=== PATIENT | female | born 1960 | race Caucasian/White ===

== ENCOUNTER 2024-08-19 13:25 | Outpatient (CLI) | payer BC, SELFPAY ==
--- NOTE | ~2024-08-19 | CT_ITS ---
EXAMINATION: CT abdomen pelvis w con DATE: 08/19/2024 13:58 INDICATION: Pelvic mass TECHNIQUE: Computed tomography (CT) of the abdomen and pelvis was performed with 100 mL Omnipaque-350 intravenous contrast. Automated exposure control and iterative reconstruction technique were employe d. The dose-length product was 480.59 mGy-cm. COMPARISON: None FINDINGS: Minimal dependent atelectasis in both lungs. Tiny calcified left lower lobe nodule consistent with ol d granulomatous disease. Heart size is normal. Atherosclerotic coronary artery calcific location. No pericardial or pleural effusion. Liver, gallbladder, spleen, pancreas and left adrenal gland are norm al. 2.5 cm left adrenal mass, increase in size from 2 cm at the time of a CT dated 11/17/2015 at which time the mass demonstrated low attenuation diagnostic of an adenoma. Bilateral kidneys are normal. M ild diverticulosis along the descending and sigmoid colon without adjacent inflammatory stranding to suggest diverticulitis. Small bowel and appendix are normal. Tiny foci of gas within the bladder. Cor relate for recent instrumentation or Olvera catheterization. Anteverted uterus and bilateral ovaries a re unremarkable. Possible tubal ligation rings along the right parotid ligament. No tubal ligation ri ngs identified on the left broad ligament although there is a small density potentially representing a tubal ligation ring at the inferior aspect of the left paracolic gutter. There is dilation of the l eft gonadal vein and left parametrial vessels which can be seen in setting of pelvic vascular congest ion syndrome. No free intraperitoneal gas or fluid. No pathologically enlarged abdominal or pelvic ly mphadenopathy. Mild to moderate lumbar and lower thoracic spondylosis. IMPRESSION: 1. Minimal gas within the nondependent bladder. Correlate for recent instrumentation or Olvera cathete rization. No other acute intra-abdominal/pelvic process. 2. Increased prominence of the left parametrial vessels and gonadal vein which can be seen with sever e pelvic vascular congestion syndrome. 3. Mild diverticulosis. Reviewed, dictated and finalized at location A. IMPRESSION: 1. Minimal gas within the nondependent bladder. Correlate for recent instrument ation or Olvera catheterization. No other acute intra-abdominal/pelvic process. 2. Increased prominence of the left parametrial vessels and gonadal vein which can be seen with severe pelvic vascular congestion syndrome. 3. Mild diverticulosis.
--- OUTSIDE RECORDS SUMMARY | 2024-08-19 13:34 | XMS_ITS | Clinical Summary ---
Author Organization [facility] Medical Office Building B Address [address] [place] [address] Care Team Providers Care Resume Writer Name Role Phone Twyla Cheema DO Primary Care Provider Allergies No known active allergies Medications ibuprofen (ADVIL,MOTRIN) 100 mg tablet take 2 tablet by oral route every 4 - 6 hours as needed with food 0 0 03/05/2016 Active ergocalciferol (VITAMIN D) 50,000 unit capsuleIndicati ons:Vitamin D Deficiency Take 1 capsule (50,000 Units total) by mouth 2 (two) times a week 8 capsule 3 03/13/2022 Active phentermine-top iramate 7.5-46 mg capsule, ER multiphase 24 hr Take by mouth daily Active aspirin 81 mg chewable tablet Take 1 tablet (81 mg total) by mouth daily Active Active Problems Problem Noted Date Diagnosed Date Overweight with body mass in dex (BMI) of 28 to 28.9 in adult 03/16/2022 Right calf pain 03/16/2022 Assessment & Plan (03/16/2022 5:23 PM MEDICAL OPERATIONS SUPERVISOR): Rule out DVT. Will obtain stat ultrasound right lower extremity venous Doppler. Body mass index (BMI) of 33.0-33.9 in adult 11/27 Assessment & Plan (12/24/2021 7:54 AM CDT): Patient was asking about weight loss options. Interest in week OB. I discussed her pre diabetes and use of Ozempic. I talked her about diet and exercise. She is interest in weight watchers as her company pays for weight watchers. She has the mayra and tracks her points through that. Will have her follow-up in 1 month for weight check Prediabetes 10/02/2020 Assessment & Plan (03/16/2022 5:24 PM MEDICAL OPERATIONS SUPERVISOR): Doing well on Mounjero. Will increase to 5 mg daily for the next month. Follow- up 1 month for weight check Assessment & Plan (12/24/2021 8:05 AM CDT): Discussed prediabetes implication. Will try Ozempic, . Discussed starting dose and titrating dose. Discussed getting insurance approval. Discussed side effects. Will have her follow-up in 1 month for recheck The website cdc.gov (Centers for Disease Control) also has helpful information about diet/exercise..... click Health Topics, search Healthy Weight or scroll down to H and Healthy Weight and then click on Healthy Eating for a Healthy Weight . They also have information on prediabetes and prevention of type 2 diabetes. Also click Health Topics and search prediabetes Assessment & Plan (10/02/2020 7:37 AM CDT): Last hga1c was 5.7%. Will recheck with labs Hypertriglyceridemia 10/02/2020 Assessment & Plan (12/24/2021 8:08 AM CDT): Labs reviewed with patient. No medication indicated at this time. Work on diet and weight loss Assessment & Plan (10/02/2020 7:40 AM CDT): Lipid abnormalities are stable, reviewed previous lipid levels in [facility].not currently on cholesterol medication. Diet controlled. Order for lipid panel was given today to be obtained. Pt voiced understanding of lab drawn and continuation of current medication regimen. Annual physical exam 03/13/2020 Assessment & Plan (12/24/2021 8:07 AM CDT): -Recommended: Healthy diet. Avoiding junk food/fast food. -30 minutes of exercise most days of the week. Increase to 45 minutes for weight loss. Immunizations: Recommended Shingrix, Recommend covid booster as updated per CDC guidelines and influenza vaccine update this . increase physical activity, call if any problems Follow-up in 1 year. Assessment & Plan (03/13/2020 3:34 PM MEDICAL OPERATIONS SUPERVISOR): -Recommended: Healthy diet. Avoiding junk food/fast food. -30 minutes of exercise most days of the week. Increase to 45 minutes for weight loss. Immunizations: Recommended yearly influenza vaccine, discussed Shingrix vaccine lose weight, follow low fat diet, continue present plan, routine labs ordered, call if any problems Follow-up in 6 months. Internal derangement of right knee 03/08/2020 Assessment & Plan (03/13/2020 3:33 PM MEDICAL OPERATIONS SUPERVISOR): Currently being managed by Orthopedics. She has an MRI pending. Off work until at least Thursday due to current pain patient cannot walk any long distances. She is currently using ibuprofen 600-800 mg 2-3 times daily for pain. Acquired hypothyroidism 11/24/2018 Assessment & Plan (10/02/2020 7:39 AM CDT): Check TSH today. Continue current medication. Not currently on thyroid medication. Has been euthyroid Assessment & Plan (03/13/2020 3:28 PM MEDICAL OPERATIONS SUPERVISOR): Check TSH today. Continue current medication. Vitamin D deficiency 11/24/2018 Assessment & Plan (03/16/2022 5:24 PM MEDICAL OPERATIONS SUPERVISOR): Re sent vitamin-D for twice weekly Assessment & Plan (12/24/2021 8:09 AM CDT): Reviewed current vitamin-D level. Patient has difficulty remembering to take medication daily. Will resume weekly vitamin-D 36391 units. Assessment & Plan (10/02/2020 7:54 AM CDT): Will recheck vitamin-D level today Assessment & Plan (03/13/2020 3:30 PM MEDICAL OPERATIONS SUPERVISOR): Vitamin D was 15 in October. She was given vitamin D supplements at one time by her complex human resources manager, to take twice weekly, but never took them. She was post to get her vitamin-D then recheck. I told her there is no reason to recheck her vitamin-D if she did not take the supplements. I will restart her on a weekly vitamin-D supplement 73595 units weekly. We will then recheck her vitamin-D level in 12 weeks. Patient was in agreement states that a weekly supplement may be easier for her to remember to take Resolved Problems Problem Noted Date Diagnosed Date Resolved Date Class 1 obesity due to exces s calories without serious comorbidity with body mass index (BMI) of 31.0 to 31.9 in adult 11/24/2018 Assessment & Plan (10/02/2020 7:38 AM CDT): Is taking contrave from [employer]. Is having difficulty taking 2nd dose in afternoon because she forgets. BMI Follow-up includes: exercise counseling. Assessment & Plan (03/13/2020 3:29 PM MEDICAL OPERATIONS SUPERVISOR): BMI Follow-up includes: exercise counseling. Immunizations Immunization Administration Dates Next Due Influenza, Trivalent, Adjuva nted, Intramuscular 03/10/2024 Influenza, Unspecified 02/06/2023,2021(Deferred: Patient Refused),01/27/2022,12/24/2021(Deferre d: Patient Refused),06/26/2021(Deferred: Patient Refused),01/25/2021,01/26/2020, 020 Moderna SARS-CoV-2 Monovalen t Vaccination (12+ YRS) 05/22/2020,04/24/2020 Tdap 09/13/2014 Medical History Medical History Date Comments Hx Other Medical Pneumonia Osteopenia Osteopenia; Comm ents: [facility] 02/12/2016 - Vitamin D deficiency Vitamin D d eficiency; Comments: [facility] 02/12/2016 - Hyperlipidemia Hyperlipidemia; Comments: [facility] 02/12/2016 - Borderline diabetes mellitus Pre diabetes; Comments: [facility] 02/12/2016 - Family History Medical History Relation Name Comments Cancer Father Cancer, unknown ; Diabetes type II Father Diabetes me llitus type 2; Heart attack Father Myocardial infa rction; Heart disease Father Heart disease; Breast cancer Father's Sister 1 beryl Breast cancer Father's Sister 2 josh Heart disease Mother Heart disease; Colon cancer Paternal Grandfather Relation Name Status Comments Father Father's Sister 1 beryl Father's Sister 2 josh Mother Paternal Grandfather Social History Tobacco Use Types Packs/Day Years Used Date Smoking Tobacco: Former Cigarettes Q uit: 11/24/2012 Smokeless Tobacco: Never Tobacco Cessation:Counseling Given: Not Answered Alcohol Use Standard Drinks/Week Comments Yes 0 (1 standard drink = 0.6 oz pur e alcohol) Humiliation, Afraid, Rape, and Kick questionnair e Answer Date Recorded Within the last year, have y ou been afraid of your partner or ex-partner? No 05/21/2023 Within the last year, have y ou been humiliated or emotionally abused in other ways by your partner or ex-partner? No Within the last year, have y ou been kicked, hit, slapped, or otherwise physically hurt by your partner or ex-partner? No 05/21/2023 Within the last year, have y ou been raped or forced to have any kind of sexual activity by your partner or ex-partner? No 05/21/2023 AUDIT-C Answer Date Recorded Q1: How often do you have a drink containing alc ohol? Monthly or less 05/21/2023 Q2: How many drinks containi ng alcohol do you have on a typical day when you are drinking? 3 or 4 05/21/2023 Q3: How often do you have si x or more drinks on one occasion? Never 05/21/2023 PHQ-2 Answer Date Recorded PHQ-2 Total Score (If total score is 3 or more points, staff should administer the PHQ-9) 0 03/13/2022 Comments No Sex and Gender Information Value Date Recorded Sex Assigned at Not on file Legal Sex Female 11:38 AM MEDICAL OPERATIONS SUPERVISOR Gender Identity Female 03/28/2020 7:57 AM MEDICAL OPERATIONS SUPERVISOR Sexual Orientation Straight 03/28/2020 7: 57 AM MEDICAL OPERATIONS SUPERVISOR Obstetrics History Para Term AB IAB SAB Ectopic Multiple Livin g Live Births 4 4 4 2 3 Date Outcome GA Total Labor Labor/2nd/3rd Weight Sex Type Anes PTL Marguerite A1 A5 Name Clin 06/15 84 Term 3.402 kg (7 lb 8 oz) M Vaginal Local Neona munir Demis e 06/15 85 Term 3.147 kg (6 lb 15 oz) F Vaginal None Livin g Complications:None 04/14 87 Term 3.402 kg (7 lb 8 oz) F Vaginal None Complications:None 07/13 92 Term 3.345 kg (7 lb 6 oz) M Vaginal Epidur al Livin g Complications:None Last Filed Vital Signs Vital Sign Reading Time Taken Comments Blood Pressure 142/78 12/30/2023 3:34 PM CDT Pulse 89 12/30/2023 3:34 PM CDT Temperature 36.9 C (98.5 F) 12/30/2023 3:34 PM CDT Respiratory Rate 20 12/30/2023 3:34 PM CDT Oxygen Saturation 98% 12/30/2023 3:34 PM CDT Inhaled Oxygen Concentration - - Weight 90.7 kg (200 lb) 12/30/2023 3:34 PM CDT Height 167.6 cm (5' 6 ) 12/30/2023 3:34 PM CDT Body Mass Index 32.28 12/30/2023 3:34 PM CDT Plan of Treatment Health Maintenance Due Date Last Done Comments Hepatitis B Screening 1977 Pneumococcal vaccine 65+ (1 of 1 - PCV) 2009 Zoster Vaccine (1 of 2) 2009 Depression Screening 03/13/2023 03/13/2022, 01/30/2022, 12/24/2021, Additional history exists Fall Risk Assessment 03/13/2023 03/13/2022, 01/30/2022, 12/24/2021 Covid-19 Vaccine (3 - 2023-2 5 season) 2023 05/22/2020, 04/24/2020 Cervical Cancer Screening 05/21/2024 05/21/2023 Well Visit 65+ 05/21/2024 05/21/2023, 11/27, 03/13/2020 Breast Cancer Screening-Mammogram 06/04/2024 06/04/2023, 02/04/2022, 05/15/2020, Additional history exists DTaP/Tdap/Td Vaccine (2 - Td or Tdap) 09/13/2024 09/13/2014 Osteoporosis Screening-Bone Density Scan 06/04/2025 06/04/2023, 11/11/2018 Colon Cancer Screening-Colonoscopy 03/31/2026 03/31/2016 Colon Cancer Screening-CT Colonography Discontinued 03/31/2016 Colon Cancer Screening-DNA Stool Discontinued 03/31/20 16 Colon Cancer Screening-FIT Discontinued 03/31/2016 Colon Cancer Screening-Sigmoidoscopy Discontinued 03/31/2016 Hepatitis C Screening Completed 05/15/2020 Influenza Vaccine Completed 03/10/2024, , 01/27/2022, Additional history exists Procedures Procedure Name Priority Date/Time Associated Diagnosis Comments DEXA AXIAL SKELETON BONE DENSITY 1 OR MORE SITES Schedule Routine, Read Routine (OP Routine) 06/04/2023 7:37 AM MEDICAL OPERATIONS SUPERVISOR Screening for osteoporosis SCREENING MAMMOGRAM BILATERAL W TRAV Schedule Routine, Read Routine (OP Routine) 06/04/2023 7:24 AM MEDICAL OPERATIONS SUPERVISOR Screening mammogram, encounter for PAP AND HPV, REFLEX TO HPV GENOTYPES Routine 05/21/2023 11:12 AM MEDICAL OPERATIONS SUPERVISOR Well woman exam with routine gynecological exam HEPATITIS C ANTIBODY Routine 05/15/2020 3:03 PM MEDICAL OPERATIONS SUPERVISOR Annual physical exam COLONOSCOPY REPORT 03/31/2016 from Last 3 Months or Most Recently Relevant to Health Maintenance Results * Dexa Axial Skeleton Bone Density 1 Or 2 Site (06/04/2023 7:37 AM MEDICAL OPERATIONS SUPERVISOR) Anatomical Region Laterality Modality Body N/A Other 06/04/2023 4:43 PM MEDICAL OPERATIONS SUPERVISOR Narrative 06/04/2023 4:44 PM MEDICAL OPERATIONS SUPERVISOR EXAM DESCRIPTION: DEXA AXIAL SKELETON BONE DENSITY 1 OR MORE SITES REASON FOR STUDY: 63 y/o year old F with given history of: osteopenia 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 FINDINGS: AP LUMBAR SPINE L1-L4: Total BMD is 0.806 g/cm2 T-score is -2.2 LEFT HIP: Total BMD is 0.938 g/cm2 T-score is 0.0 Femoral neck BMD is 0.733 g/cm2 T-score is -1.0 FRAX: 10 year risk for a major osteoporotic fracture is 7.6 %, 10 year risk for a hip fracture is 0.5 % IMPRESSION: Low Bone Mass. REFERENCE: Bone mineral density: Normal (T-score above or = -1.0) Low bone mass (T-score between -1.0 and -2.5) replaces the previously used term osteopenia Osteoporosis (T-score = or below -2.5) Please see below follow up recommendations. Medical evaluation for secondary causes of low bone mineral density may be appropriate. FRAX is a World Health Organization validated fracture risk assessment tool that calculates a person's 10 year probability of a major osteoporosis related fracture and hip fracture. According to the National Osteoporosis Foundation guidelines, postmenopausal women and men age 50 or older with low bone mass and a 10 year probability of a major osteoporosis related fracture = or greater than 20% or a 10 year probability of a hip fracture = or greater than 3% should be considered for pharmacological treatment for the prevention of osteoporosis. For further information, including treatment recommendations, please refer to the 2019 ISCD Official Positions (http://www.iscd.org) and the NOF's Clinician's Guide to Prevention and Treatment of Osteoporosis (http://www.nof.org/professionals/clinical-guidelines) THIS IS AN ELECTRONICALLY VERIFIED FINAL REPORT 06/04/2023 4:44 PM - Electronically signed by Mauricio Mullen M.D. 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 FINDINGS: AP LUMBAR SPINE L1-L4: Total BMD is 0.806 g/cm2 T-score is -2.2 LEFT HIP: Total BMD is 0.938 g/cm2 T-score is 0.0 Femoral neck BMD is 0.733 g/cm2 T-score is -1.0 FRAX: 10 year risk for a major osteoporotic fracture is 7.6 %, 10 year risk fora hip fracture is 0.5 % IMPRESSION: Low Bone Mass. REFERENCE: Bone mineral density: Normal (T-score above or = -1.0) Low bone mass (T-score between -1.0 and -2.5) replaces thepreviously used term osteopenia Osteoporosis (T-score = or below -2.5) Please see below follow up recommendations. Medical evaluation forsecondary causes of low bone mineral density may be appropriate. FRAX is a World Health Organization validated fracture risk assessmenttool that calculates a person's 10 year probability of a major osteoporosisrelated fracture and hip fracture. According to the National OsteoporosisFoundation guidelines, postmenopausal women and men age 50 or older with low bonemass and a 10 year probability of a major osteoporosis related fracture = or greater than 20% or a 10 year probability of a hip fracture = or greaterthan 3% should be considered for pharmacological treatment for the preventionof osteoporosis. For further information, including treatment recommendations, please referto the 2019 ISCD Official Positions (http://www.iscd.org) and the NOF's Clinician's Guide to Prevention and Treatment of Osteoporosis (http://www.nof.org/professionals/clinical-guidelines) THIS IS AN ELECTRONICALLY VERIFIED FINAL REPORT 06/04/2023 4:44 PM - Electronically signed by Mauricio Mullen M.D. MF: DIAMOND Report ID: [id number] Reading Location: [place] [address] Twyla Wilson NP IM DXA PROCEDURES Final Result * Screening Mammogram Bilateral W Trav (06/04/2023 7:24 AM MEDICAL OPERATIONS SUPERVISOR) Anatomical Region Laterality Modality Breast Bilateral Mammography 06/04/2023 8:13 AM MEDICAL OPERATIONS SUPERVISOR Impressions 06/04/2023 8:13 AM MEDICAL OPERATIONS SUPERVISOR There is no mammographic evidence of malignancy. A 1 year screening mammogram is recommended. BI-RADS: 1 - Negative. The patient has been or will be contacted. The patient will be entered into a reminder system with a target due date of 1 year for her next mammogram. Electronically signed by: Cooper Will M.D. Narrative 06/04/2023 8:13 AM MEDICAL OPERATIONS SUPERVISOR EXAMINATION: SCREENING MAMMOGRAM BILATERAL W TRAV ORDERING HEALTHCARE PROVIDER: SELF SCREENING MAMMOGRAM HISTORY: Routine screening mammography. COMPARISON: 02/04/2022, 05/15/2020, 11/05/2018 TECHNIQUE: CC and MLO views of the bilateral breasts were obtained with digital technique using breast tomosynthesis with C view. Computer aided detection was utilized. FINDINGS: DENSITY: There are scattered fibroglandular elements in the bilateral breasts. BREASTS: There are no suspicious masses, suspicious calcifications, or other suspicious findings in either breast. There has been no suspicious interval change. us Self Screening Mammogram IMG MAMMO PROCEDURES Fi nal Result * Pap and HPV, reflex to HPV Genotypes (05/21/2023 11:12 AM MEDICAL OPERATIONS SUPERVISOR) Clinical indication Comment [facility] - 01 Comment:NEGATIVE FOR INTRAEP ITHELIAL LESION OR MALIGNANCY. Specimen adequacy: Comment [facility] - 01 Comment: Satisfactory for evaluation. Endocervical component may not be distinguished in cases of atrophy. Clinician provided ICD10 Comment [facility] - 01 Comment:Z01.419 Performed by Comment [facility] - 01 Comment:Travis Travis, Cyto technologist (ASCP) . . [facility] - 01 Note: Comment [facility] - 01 Comment: The Pap smear is a screening test designed to aid in the detection of premalignant and malignant conditions of the uterine cervix. It is not a diagnostic procedure and should not be used as the sole means of detecting cervical cancer. Both false-positive and false-negative reports do occur. Test methodology Comment [facility] - 01 Comment: This liquid based ThinPrep(R) pap test was screened with the use of an image guided system. HPV Aptima Negative Negative [facility] 02 Comment: This nucleic acid amplification test detects fourteen high-risk HPV types (16,18,31,33,35,39,45,51,52,56,58,59,66,68) without differentiation. HPV Genotype Reflex Comment [facility] - 01 Comment:Criteria not met, HP V Genotype not performed. Thin prep 05/21/2023 11:1 2 AM MEDICAL OPERATIONS SUPERVISOR 05/22/2023 Narrative [facility] - 05/26/2023 3:09 PM MEDICAL OPERATIONS SUPERVISOR Performed at: - [facility] [id number] Environmental Inspector: Lashay Ulrich MD, Phone: [phone] Performed at: 02 - [facility] [id number] Environmental Inspector: Lashay Ulrich MD, Phone: [phone] Specimen Comment: No. of containers..01 ThinPrep Vial Twyla Wilson NP LAB CYTOLOGY ORDERABLES Final Re sult [facility] - 01 [facility] 02 * Hepatitis C antibody (05/15/2020 3:03 PM MEDICAL OPERATIONS SUPERVISOR) Hep C Ab Nonreactive Nonreactive [facility] ([facility]) Comment: Interpretive Data Nonreactive: Antibodies to HCV not detected. Does NOT exclude the possibility of recent exposure to HCV. Equivocal: Equivocal for HCV antibodies. Supplemental molecular testing will be automatically performed to determine infection status in accordance with current CDC screening recommendations. Reactive: Positive for HCV antibodies. This may represent current or past HCV infection. Supplemental molecular testing will be automatically performed to determine current infection status in accordance with current CDC screening recommendations. Interpretive data was last revised on 2019. Testing performed by: [facility], [address] [place] [address]., [id number] Blood specimen (specimen) 05/15/2020 3:03 PM MEDICAL OPERATIONS SUPERVISOR 05/15/2020 9:17 PM MEDICAL OPERATIONS SUPERVISOR Ginger Rogers PICK PULLING MACHINE TENDER LAB MICROBIOLOGY - GENERAL OR DERABLES Final Result [facility]) 1 [facility] Department [place] [address] * COLONOSCOPY REPORT (03/31/2016) Anatomical Region Laterality Modality Other Narrative 03/31/2016 Ordered by an unspecified provider. Historical Provider GI PROCEDURE ORDERABLES F inal Result from Last 3 Months or Most Recently Relevant to Health Maintenance Insurance [facility] CHOICE [facility] HMO/PPO Address: [address] [address] [place] [address] [facility] Care Teams Resume Writer Relationship Specialty Start Date End Date Twyla Cheema DO [address] [place] [address] PCP - General Family Medicine 07/08/24
--- OUTSIDE RECORDS SUMMARY | 2024-08-19 13:34 | XMS_ITS | Clinical Summary ---
Author Organization [facility] [employer] Address [address] [place] [address] Care Team Providers Care Informatics Educator Name Role Phone Unavailable Primary Care Provider Unavailabl e Source Comments [facility] [employer],non-owned Affiliates and Associated Physician Practices is amultiple site organization consisting of ambulatory clinics and hospital sitesin [place], [place], [place] and [place]. This disclosure is being madepursuant to the Care Everywhere program and may not contain all information available regarding this patient. Last updated 18.[facility] [employer] Allergies No known active allergies Medications * Be aware that medications may not be up to date on this document. Alwaysverify current medications with the patient. Naltrexone-Bupropi on HCl (CONTRAVE PO) Active Levothyroxine Sodium (SYNTHROID PO) Active VITAMIN D, ERGOCALCIFEROL, PO A ctive MELOXICAM PO Active Active Problems No known active problems Family History Medical History Relation Name Comments Cancer - Other Father CAD (Coronary Artery Disease) Mother CABG x 4 Relation Name Status Comments Father Mother Social History Tobacco Use Types Packs/Day Years Used Date Smoking Tobacco: Former Smokeless Tobacco: Never Comments No Sex and Gender Information Value Date Recorded Sex Assigned at Not on file Legal Sex Female 8:14 AM CDT Gender Identity Not on file Sexual Orientation Not on file Last Filed Vital Signs Vital Sign Reading Time Taken Comments Blood Pressure 124/80 07/05/2020 6:45 PM FOOD SAFETY COORDINATOR Pulse 78 07/05/2020 6:45 PM FOOD SAFETY COORDINATOR Temperature 36.4 C (97.5 F) 07/05/2020 6:45 PM FOOD SAFETY COORDINATOR Respiratory Rate 18 07/05/2020 6:45 PM FOOD SAFETY COORDINATOR Oxygen Saturation 98% 07/05/2020 6:45 PM FOOD SAFETY COORDINATOR Inhaled Oxygen Concentration - - Weight 86.2 kg (190 lb) 07/05/2020 6:45 PM FOOD SAFETY COORDINATOR Height 167.6 cm (5' 6 ) 07/05/2020 6:45 PM FOOD SAFETY COORDINATOR Body Mass Index 30.67 07/05/2020 6:45 PM FOOD SAFETY COORDINATOR Plan of Treatment Health Maintenance Due Date Last Done Comments BONE DENSITY TESTING 1959 COLOGUARD (AGES 45-75) - COL ON CA SCREENING 1959 COLON MONITORING 1959 COLONOSCOPY - COLON CA SCREENING 1959 CT COLONOGRAPHY - COLON CA SCREENING 1959 Colorectal Cancer Screening 1959 FIT - COLON CA SCREENING 1959 FLEX SIG - COLON CA SCREENING 1959 LIPID TESTING 1959 HIV SCREENING 1974 HEPATITIS C SCREENING 12/29/1976 DTAP/TDAP/TD VACCINES (1 - Tdap) 1978 PNEUMOCOCCAL VACCINE 50+ (1 of 1 - PCV) 2009 ZOSTER VACCINE (1 of 2) 2009 SCREENING FOR DIABETES 10/24/2018 MAMMOGRAM 05/15/2022 05/15/2020 COVID-19 VACCINE (3 - 2023-2 5 season) 2023 05/22/2020, 04/24/2020 DEPRESSION SCREENING 04/27/2024 INFLUENZA VACCINE (Season Ended) 2024 01/26/2020 Respiratory Syncytial Virus (RSV) Vaccine Pt: or over 60 yrs (1 - 1-dose 75+ series) 2034 HEPATITIS B VACCINE Aged Out No longe r eligible based on patient's age to complete this topic HIB VACCINE Aged Out No longer eligi ble based on patient's age to complete this topic HPV VACCINE Aged Out No longer eligi ble based on patient's age to complete this topic MENINGOCOCCAL (Group B) VACCINE SHARED DECISION-MAKING Aged Out No longer eligible based on patient's age to complete this topic MENINGOCOCCAL GROUPS A/C/Y/W VACCINE Aged Out No longer eligible b ased on patient's age to complete this topic Insurance [facility]
--- OUTSIDE RECORDS SUMMARY | 2024-08-19 13:34 | XMS_ITS | Clinical Summary ---
Author Organization [facility] Care Team Providers Care Secondary History Teacher Name Role Phone Unavailable Primary Care Provider Unavailabl e Encounters Date Type Department Care Team Description 08/16/2024 Transcribe Orders [facility] Central Scheduling [address] [place] [id number] Twyla Cheema, BRENDA Pelvic mass (Primary Dx) from Last 3 Months Social History Tobacco Use Types Packs/Day Years Used Date Smoking Tobacco: Never Assessed Comments Unknown Sex and Gender Information Value Date Recorded Sex Assigned at Not on file Legal Sex Female 11:09 PM CDT Gender Identity Not on file Sexual Orientation Not on file Plan of Treatment Not on file
--- OUTSIDE RECORDS SUMMARY | 2024-08-19 13:34 | XMS_ITS | Encounter Summary ---
Author Organization [facility] Address [address] [place] [address] Care Team Providers Care Bookkeeping Clerk Name Role Phone Twyla Cheema DO Primary Care Provider [phone] Encounter Details Date Type Department Care Team (Latest Contact Info) Description 08/16/2024 Pro Player Connectt Message Enc [facility] [place] [address] [place] [address] Twyla Cheema DO [address] [place], [place] [id number] Insurance question Social History Tobacco Use Types Packs/Day Years Used Date Smoking Tobacco: Former Cigarettes 1 23 S tarted: 1976 Passive Smoke Exposure: Past Smokeless Tobacco: Never Alcohol Use Standard Drinks/Week Comments Yes 0 (1 standard drink = 0.6 oz pur e alcohol) once a month PHQ-2 Answer Date Recorded Patient Health Questionnaire-2 Score 0 08/16/2024 Comments No Sex and Gender Information Value Date Recorded Sex Assigned at Female 06/02/2024 8:25 AM BUSINESS SERVICES SPECIALIST SALES Legal Sex Female 2:00 PM CDT Gender Identity Female 06/02/2024 8:25 AM BUSINESS SERVICES SPECIALIST SALES Sexual Orientation Not on file documented as of this encounter Functional Status * Over the past 2 weeks, how often have you been bothered by any of the following problems? Question Answer Date of Assessment Author Status Little interest or pleasure in doing things Not at all 08/16/2024 10:34 AM Twyla Martines, DO Act oliva Feeling down, depressed, or hopeless Not at all 08/16/2024 10:34 AM Twyla Martines, DO Active Patient Health Questionnaire-2 Score 0 08/16/2024 10:34 AM Twyla Martines, DO Active * Question Answer Date of Assessment Author Status Trouble falling or staying asleep, or sleeping too much More than half the days 08/16/2024 10:34 AM Twyla Martines, DO Active Feeling tired or having little energy More than half the days 08/16/2024 10:34 AM Twyla Martines, DO Active Poor appetite or overeating Not at all 08/16/2024 10:34 AM Twyla Martines, DO Active Feeling bad about yourself - or that you are a failure or have let yourself or your family down Not at all 08/16/2024 10:34 AM Twyla Martines, DO Active Trouble concentrating on things, such as reading the newspaper or watching television Not at all 08/16/2024 10:34 AM Twyla Martines, DO Active Moving or speaking so slowly that other people could have noticed? Or the opposite - being so fidgety or restless that you have been moving around a lot more than usual. Not at all 08/16/2024 10:34 AM Twyla Martines, DO Active Thoughts that you would be better off or hurting yourself in some way Not at all 08/16/2024 10:34 AM Twyla Martines, DO Active Patient Health Questionnaire-9 Score 4 08/16/2024 10:34 AM Twyla Martines, DO Active * If you checked off any problems on this questionnaire so far, Question Answer Date of Assessment Author Status How difficult have these problems made it for you to do your work, take care of things at home, or get along with other people? Not difficult at all 08/16/2024 10:34 AM CDT Twyla Cheema DO Active documented as of this encounter Progress Notes * Bernie Johnson - 08/17/2024 10:48 AM CDT Update on 08/17/24: [facility] confirmed that their system has been updated to allow members to select Dr. Cheema as a PCP. They also reached out to customer service to advise them of the update. documented in this encounter Plan of Treatment Upcoming Encounters Date Type Department Care Team (Late st Contact Info) Description 08/23/2024 7:15 PM CDT Appointment [facility] [address] [place] [address] Twyla Cheema DO [address] [place] [address] 09/13/2024 1:40 PM CDT Office Visit [facility] [place] [address] [place] [address] Twyla Cheema DO [address] [place] [address] documented as of this encounter Visit Diagnoses Not on filedocumented in this encounter Additional Health Concerns Assessment Noted Time PHQ-9 Depression Total Score: 4 08/17/19 10:34 AM CDT documented as of this encounter Care Teams Bookkeeping Clerk Relationship Specialty Start Date End Date Twyla Cheema DO [address] [place] [address] PCP - General FAMILY PRACTICE 05/10/24 documented as of this encounter
--- OUTSIDE RECORDS SUMMARY | 2024-08-19 13:34 | XMS_ITS | Referral Summary ---
Author Organization [facility] Address [address] [place] [address] Care Team Providers Care Senior Media Director Name Role Phone Twyla Cheema DO Primary [...] 03/16/2022 Assessment & Plan (03/16/2022 5:23 PM FEATHER CUTTING MACHINE FEEDER): Rule out DVT. Will obtain stat ultrasound [...] 10/02/2020 Assessment & Plan (03/16/2022 5:24 PM FEATHER CUTTING MACHINE FEEDER): Doing well on Mounjero. Will increase to [...] are stable, reviewed previous lipid levels in [facility].not currently on cholesterol medication. Diet controlled. [...] year. Assessment & Plan (03/13/2020 3:34 PM FEATHER CUTTING MACHINE FEEDER): -Recommended: Healthy diet. Avoiding junk food/fast food. -30 minutes of exercise most days of the week. Increase to 45 minutes for weight loss. Immunizations: Recommended yearly influenza vaccine, discussed Shingrix vaccine lose weight, follow low fat diet, continue present plan, routine labs ordered, call if any problems Follow-up in 6 months. Internal derangement of right knee 03/08/2020 Assessment & Plan (03/13/2020 3:33 PM FEATHER CUTTING MACHINE FEEDER): Currently being managed by Orthopedics. She has [...] euthyroid Assessment & Plan (03/13/2020 3:28 PM FEATHER CUTTING MACHINE FEEDER): Check TSH today. Continue current medication. Vitamin D deficiency 11/24/2018 Assessment & Plan (03/16/2022 5:24 PM FEATHER CUTTING MACHINE FEEDER): Re sent vitamin-D for twice weekly Assessment & Plan (12/24/2021 8:09 AM CDT): Reviewed current vitamin-D level. Patient has difficulty remembering to take medication daily. Will resume weekly vitamin-D 25224 units. Assessment & Plan (10/02/2020 7:54 AM CDT): Will recheck vitamin-D level today Assessment & Plan (03/13/2020 3:30 PM FEATHER CUTTING MACHINE FEEDER): Vitamin D was 15 in October. She was given vitamin D supplements at one time by her artist representative, to take twice weekly, but never took them. She was post to get her vitamin-D then recheck. I told her there is no reason to recheck her vitamin-D if she did not take the supplements. I will restart her on a weekly vitamin-D supplement 42505 units weekly. We will then recheck her [...] 7:38 AM CDT): Is taking contrave from FIELD EDUCATION DIRECTOR. Is having difficulty taking 2nd dose in afternoon because she forgets. BMI Follow-up includes: exercise counseling. Assessment & Plan (03/13/2020 3:29 PM FEATHER CUTTING MACHINE FEEDER): BMI Follow-up includes: exercise counseling. Immunizations Immunization Administration Dates Next Due Influenza, Trivalent, Adjuva nted, Intramuscular 03/10/2024 Influenza, Unspecified 02/06/2023,2021(Deferred: Patient Refused),01/27/2022,12/24/2021(Deferre d: Patient Refused),06/26/2021(Deferred: Patient Refused),01/25/2021,01/26/2020, 020 Moderna SARS-CoV-2 Monovalen t Vaccination (12+ YRS) 05/22/2020,04/24/2020 Tdap 09/13/2014 Social History Tobacco Use Types Packs/Day Years [...] on file Legal Sex Female 11:38 AM FEATHER CUTTING MACHINE FEEDER Gender Identity Female 03/28/2020 7:57 AM FEATHER CUTTING MACHINE FEEDER Sexual Orientation Straight 03/28/2020 7: 57 AM FEATHER CUTTING MACHINE FEEDER Last Filed Vital Signs Vital Sign Reading [...] 12/30/2023 3:34 PM CDT Plan of Treatment Not on file Procedures Procedure Name Priority Date/Time Associated Diagnosis Comments DEXA AXIAL SKELETON BONE DENSITY 1 OR MORE SITES Schedule Routine, Read Routine (OP Routine) 06/04/2023 7:37 AM FEATHER CUTTING MACHINE FEEDER Screening for osteoporosis SCREENING MAMMOGRAM BILATERAL W TRAV Schedule Routine, Read Routine (OP Routine) 06/04/2023 7:24 AM FEATHER CUTTING MACHINE FEEDER Screening mammogram, encounter for PAP AND HPV, REFLEX TO HPV GENOTYPES Routine 05/21/2023 11:12 AM FEATHER CUTTING MACHINE FEEDER Well woman exam with routine gynecological exam HEPATITIS C ANTIBODY Routine 05/15/2020 3:03 PM FEATHER CUTTING MACHINE FEEDER Annual physical exam COLONOSCOPY REPORT 03/31/2016 from Last 3 Months or Most Recently Relevant to Health Maintenance Results * Dexa Axial Skeleton Bone Density 1 Or 2 Site (06/04/2023 7:37 AM FEATHER CUTTING MACHINE FEEDER) Anatomical Region Laterality Modality Body N/A Other 06/04/2023 4:43 PM FEATHER CUTTING MACHINE FEEDER Narrative 06/04/2023 4:44 PM FEATHER CUTTING MACHINE FEEDER EXAM DESCRIPTION: DEXA AXIAL SKELETON BONE DENSITY 1 OR MORE SITES REASON FOR STUDY: 63 y/o year old F with given history of: osteopenia screening postmenopausal Manager Social Services/Model: [employer] (S/N [id number]) CLINICAL INFORMATION: Current height: 66 inches Maximum [...] Mauricio Mullen M.D. MF: DIAMOND Report ID: [id number] Reading Location: [id number] Procedure Note Mauricio Mullen MD - 06/04/2023 EXAM DESCRIPTION: DEXA AXIAL SKELETON BONE DENSITY 1 OR MORE SITES REASON FOR STUDY: 63 y/o year old F with given history of: osteopenia screening postmenopausal Manager Social Services/Model: [employer] (S/N [id number]) CLINICAL INFORMATION: Current height: 66 inches Maximum [...] Mauricio Mullen M.D. MF: DIAMOND Report ID: [id number] Reading Location: [place] [address] Twyla Steve HOPE IM DXA PROCEDURES Final Result * Screening Mammogram Bilateral W Trav (06/04/2023 7:24 AM FEATHER CUTTING MACHINE FEEDER) Anatomical Region Laterality Modality Breast Bilateral Mammography 06/04/2023 8:13 AM FEATHER CUTTING MACHINE FEEDER Impressions 06/04/2023 8:13 AM FEATHER CUTTING MACHINE FEEDER There is no mammographic evidence of malignancy. A 1 year screening mammogram is recommended. BI-RADS: 1 - Negative. The patient has been or will be contacted. The patient will be entered into a reminder system with a target due date of 1 year for her next mammogram. Electronically signed by: Cooper Will M.D. Narrative 06/04/2023 8:13 AM FEATHER CUTTING MACHINE FEEDER EXAMINATION: SCREENING MAMMOGRAM BILATERAL W TRAV ORDERING [...] reflex to HPV Genotypes (05/21/2023 11:12 AM FEATHER CUTTING MACHINE FEEDER) Clinical indication Comment [facility] - 01 Comment:NEGATIVE [...] performed. Thin prep 05/21/2023 11:1 2 AM FEATHER CUTTING MACHINE FEEDER 05/22/2023 Narrative [facility] - 05/26/2023 3:09 PM FEATHER CUTTING MACHINE FEEDER Performed at: [address] [place] [address] [place] [id number] Tank Truck Driver: Lashay Ulrich MD, Phone: [phone] Performed at: 02 - [facility] [address] [place] [id number] Tank Truck Driver: Lashay Ulrich MD, Phone: [phone] Specimen Comment: No. of containers..01 ThinPrep Vial Twyla Wilson NP LAB CYTOLOGY ORDERABLES Final Re sult Performing Organization Address City/[facility]/ZIP Co de Phone Number [facility] - 01 [facility] [place] 02 * Hepatitis C antibody (05/15/2020 3:03 PM FEATHER CUTTING MACHINE FEEDER) Hep C Ab Nonreactive Nonreactive [facility] Comment: Interpretive Data Nonreactive: Antibodies to HCV [...] last revised on 2019. Testing performed by: [facility], [address] [place] [address]., [id number] Blood specimen (specimen) 05/15/2020 3:03 PM FEATHER CUTTING MACHINE FEEDER 05/15/2020 9:17 PM FEATHER CUTTING MACHINE FEEDER Ginger Rogers NP LAB MICROBIOLOGY - GENERAL OR DERABLES Final Result Performing Organization Address City/[facility]/ZIP Co de Phone Number [facility] 1 [facility] [place] [address] * COLONOSCOPY REPORT (03/31/2016) Anatomical Region Laterality Modality Other Narrative 03/31/2016 Ordered by an unspecified provider. Historical Provider GI PROCEDURE ORDERABLES F inal Result from Last 3 Months or Most Recently Relevant to Health Maintenance Insurance [facility] CHOICE [employer] [facility] HMO/PPO Address: [facility] [address] [place] [address] [facility] Care Teams Senior Media Director Relationship Specialty Start Date End Date Twyla Cheema DO [address] [place], [place] [id number] PCP - General Family Medicine 07/08/24
--- OUTSIDE RECORDS SUMMARY | 2024-08-19 13:34 | XMS_ITS | Encounter Summary ---
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 [place] [address] Phone: tel: fax: [facility] [address] [place] [address] Phone: tel: fax: Referral ID Status Reason Start Date Expiration Date Visits Re quested Visits Authorized [id number] Closed 08/18/2024 08/19/2025 1 1 * Sleep Lab (Routine) - Authorized Specialty Diagnoses / Procedures Referred By Benny greene Referred To Contact Diagnoses Nocturia Snoring Class 1 obesity without serious comorbidity with body mass index (BMI) of 30.0 to 30.9 in adult, unspecified obesity type Procedures Home Sleep Study - WatchPat ([id number]) Twyla Cheema DO 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 [place] [address] Twyla Cheema DO 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 Exam (Labs done 05/2024) Social History Tobacco Use Types Packs/Day Years Used Date Smoking Tobacco: Former Cigarettes 1 23 S tarted: 1976 Passive Smoke Exposure: Past Smokeless Tobacco: Never Tobacco Cessation:Counseling Given: No Alcohol Use Standard Drinks/Week Comments Yes 0 (1 standard drink = 0.6 oz pur e alcohol) once a month PHQ-2 Answer Date Recorded Patient Health Questionnaire-2 Score 0 08/16/2024 Comments No Sex and Gender Information Value Date Recorded Sex Assigned at Female 06/02/2024 8:25 AM CARDIAC SPECIALIST Legal Sex Female 2:00 PM CDT Gender Identity Female 06/02/2024 8:25 AM CARDIAC SPECIALIST Sexual Orientation Not on file documented as of this encounter Last Filed Vital Signs Vital Sign Reading Time Taken Comments Blood Pressure 110/68 08/16/2024 9:31 AM CDT Pulse 77 08/16/2024 9:31 AM CDT Temperature 36.5 C (97.7 F) 08/16/2024 9:31 AM CDT Respiratory Rate 16 08/16/2024 9:31 AM CDT Oxygen Saturation 98% 08/16/2024 9:31 AM CDT Inhaled Oxygen Concentration - - Weight 84.8 kg (187 lb) 08/16/2024 9:31 AM CDT Height 167.6 cm (5' 6 ) 08/16/2024 9:31 AM CDT Body Mass Index 30.18 08/16/2024 9:31 AM CDT documented in this encounter Functional Status * Over the past 2 weeks, how often have you been bothered by any of the following problems? Question Answer Date of Assessment Author Status Little interest or pleasure in doing things Not at all 08/16/2024 10:34 AM MAYDAT Twyla Cheema, DO Act oliva Feeling down, depressed, or hopeless Not at all 08/16/2024 10:34 AM MAYDAT Twyla Cheema, DO Active Patient Health Questionnaire-2 Score 0 08/16/2024 10:34 AM MAYDAT Twyla Cheema, DO Active * Question Answer Date of Assessment Author Status Trouble falling or staying asleep, or sleeping too much More than half the days 08/16/2024 10:34 AM MAYDAT Twyla Cheema, DO Active Feeling tired or having little energy More than half the days 08/16/2024 10:34 AM MAYDAT Twyla Cheema, DO Active Poor appetite or overeating Not at all 08/16/2024 10:34 AM MAYDAT Twyla Cheema, DO Active Feeling bad about yourself - [...] DO Active documented as of this encounter Patient Instructions * Patient Instructions* Twyla Cheema DO - 08/16/2024 9:20 AM CDT The National Osteoporosis Foundation recommends women over 50 should aim for 1200 mg of calcium perday which can be obtained from dietary sources such as dairy products, leafy greens, fortified foods and certain fish and supplementation can be taken if dietary intake is insufficient via calcium car bonate or calcium citrate. Vitamin D also enhances calcium absorption and recommended intake is 800 to 1000 IUs/day. I recommend you take 1000 IUs/day. Adult exercise recommendations per [place] [employer] Get at least 150 minutes per week of moderate-intensity aerobic activity or 75 minutes per week of vigorous aerobic activity, or a combination of both, preferably spread throughout the week. Add moderate- to high-intensity muscle-strengthening activity (such as resistance or weights) on atleast 2 days per week. Spend less time sitting. Even light-intensity activity can offset some of the risks of being sedentary. Gain even more benefits by being active at least 300 minutes (5 hours) per week. Increase amount and intensity gradually over time. What is intensity? Physical activity is anything that moves your body and soriano calories. This includes things like walking, climbing stairs and stretching. Aerobic (or ???cardio?? ) activity gets your heart rate up and benefits your heart by improving cardiorespiratory fitness. When done at moderate intensity, your heart will beat faster and you???ll breathe harder than normal, but you???ll still be able to talk. Think of it as a medium or moderate amount of effort. Examples of moderate-intensity aerobic activities: brisk walking (at least 2.5 miles per hour) water aerobics dancing (ballroom or social) gardening tennis (doubles) biking slower than 10 miles per hour Vigorous intensity activities will push your body a little further. They will require a higher amount of effort. You???ll probably get warm and begin to sweat. You won???t be able to talk much without getting out of breath. Examples of vigorous-intensity aerobic activities: hiking uphill or with a heavy backpack running swimming laps vigorous aerobic dancing heavy yardwork such as continuous digging or hoeing tennis (singles) cycling 10 miles per hour or faster jumping rope Knowing your target heart rate can also help you track the intensity of your activities. For maximum benefits, include both moderate- and vigorous-intensity activity in your routine along with strengthening and stretching exercises. What if I???m just starting to get active? Don???t worry if you can???t reach 150 minutes per week just yet. Everyone has to start somewhere. Even if you've been sedentary for years, today is the day you can begin to make healthy changes in your life. Set a reachable goal for today. You can work toward the recommended amount by increasing your time as you get stronger. Don't let tpl-sy-fapzylw thinking keep you from doing what you can every day. The simplest way to get moving and improve your health is to start walking. It's free, easy and canbe done just about anywhere, even in place. Any amount of movement is better than none. And you can break it up into short bouts of activity throughout the day. Taking a brisk walk for five or ten minutes a few times a day will add up. If you have a chronic condition or disability, talk with your healthcare provider about what types and amounts of physical activity are right for you before making too many changes. But don???t wait!Get started today by simply sitting less and moving more, whatever that looks like for you. The takeaway: Move more, with more intensity, and sit less. Science has linked being inactive and sitting too much with higher risk of heart disease, type 2 diabetes, colon and lung cancers, and early . It???s clear that being more active benefits everyone and helps us live longer, healthier lives. Here are some of the big wins: Lower risk of heart disease, stroke, type 2 diabetes, high blood pressure, dementia and Alzheimer???s, several types of cancer, and some complications of Better sleep, including improvements in insomnia and obstructive sleep apnea Improved cognition, including memory, attention and processing speed Less weight gain, obesity and related chronic health conditions Better bone health and balance, with less risk of injury from falls Fewer symptoms of depression and anxiety Better quality of life and sense of overall well-being Referral Information Referral Call - You will receive a call regarding this referral. Depending on the type of referral,this call may come from the [facility] Referral team at [phone] or from an [facility] hospital or an [facility] clinic. Insurance Authorization - Our referral specialists will contact your insurance company to get priorauthorization, if applicable. Working with insurance companies can be cumbersome, but we are dedicated to processing your referral timely and efficiently. Please know you have a caring and competent team working on your behalf [facility] continuum of care as quickly as possible. If you have questions or concerns regarding your referral, or have not heard anything in 5 days, please call [phone]. Thursday - Thursday, 7:30 a.m. - 5 p.m. * Attachments The following attachments cannot be sent through Care Everywhere. * High-fiber diet ([place]ankan) * Pneumococcal Conjugate (PCV) Vaccine CDC Vaccine Information Statement (VIS) ([place]an) documented in this encounter Progress Notes * Twyla Cheema DO - 08/16/2024 11:25 AM CDTAssociated Problem(s): Pelvic mass Suprapubic pelvic mass palpated on physical exam. Patient has no current symptoms of pain, changes in bowel movements, vaginal bleeding. We need to evaluate with CT abdomen pelvis with and without IVcontrast. We have faxed order over to [facility] in [place], [place] for patient to have completed. * Twyla Cheema DO - 08/16/2024 11:24 AM CDTAssociated Problem(s): Former smoker Patient does not need to participate in lung cancer screening with low-dose CT as she quit smoking many years ago and only smoked a very small amount. * Twyla Cheema DO - 08/16/2024 11:23 AM CDTAssociated Problem(s): Agatston coronary artery calcium score greater than 400 Continue daily aspirin and rosuvastatin. Counseled to not participate in vigorous physical activity until cleared by cardiology. * Twyla Cheema DO - 08/16/2024 11:23 AM CDTAssociated Problem(s): Class 1 obesity without serious comorbidity with body mass index (BMI) of 30.0 to 30.9 in adult, unspecified obesity type Continue Zepbound 15 mg twice daily. Ordering home sleep study in the setting of patient's nocturia, snoring and obesity. * Twyla Cheema DO - 08/16/2024 11:22 AM CDTAssociated Problem(s): Need for shingles vaccine Due for second dose of shingles vaccine on or after August 30, 2024 * Twyla Cheema DO - 08/16/2024 11:21 AM CDTAssociated Problem(s): Osteopenia of multiple sites She was provided calcium and vitamin D recommendations per National osteoporosis foundation. * Twyla Cheema DO - 08/16/2024 11:20 AM CDTAssociated Problem(s): Mixed hyperlipidemia Lipid panel improved incredibly after addition of statin. Continue rosuvastatin 20 mg once daily. * Twyla Cheema DO - 08/16/2024 11:19 AM CDTAssociated Problem(s): Encounter for screening mammogram for malignant neoplasm of breast Will plan to request results from mammogram * Twyla Cheema DO - 08/16/2024 10:59 AM CDTAssociated Problem(s): Nocturia Discussed with patient that this is concerning and I would like to order sleep study to evaluate for sleep breathing disorder. * Twyla Cheema DO - 08/16/2024 10:58 AM CDTAssociated Problem(s): Colon cancer screening Will attempt to request records again from Dr. Rahman regarding more recent colonoscopy. * Twyla Cheema DO - 08/16/2024 10:54 AM CDTAssociated Problem(s): Travel advice encounter Per CDC, patient will need to receive initial dose of hepatitis A vaccine as well as immune globulin at the same time. She is recommended to go to health department as we do not have immune globulin in office. * Twyla Cheema DO - 08/16/2024 10:53 AM CDTAssociated Problem(s): Need for prophylactic vaccination against Streptococcus pneumoniae (pneumococcus) She is due for Prevnar 20. She is counseled on vaccine and potential side effects of vaccine. She was given CDC VIS. * Twyla Cheema DO - 08/16/2024 10:35 AM CDTAssociated Problem(s): Depression screening Depression screening negative. Discussed with patient. She endorsed no questions. Suspect the questions that she did answer to regarding energy and sleeping are related to possible sleep breathing disorder for which we are ordering WatchPAT home sleep study. If anything changes with her mood, she is asked to return for reevaluation. * Twyla Cheema DO - 08/16/2024 9:20 AM CDTAddended by: TWYLA CHEEMA on: 08/18/2024 02:25 PM Modules accepted: Orders * Twyla Cheema DO - 08/16/2024 9:20 AM CDT SUBJECTIVE: Maegan Sheets is a 64-year-old female who presents for annual well woman exam. Care team: Upcoming cardiology appointment with 08/19/2024 LMP: Greater than 5 years ago Menstrual concerns: no-denies postmenopausal bleeding Sexually active: yes Contraception: Postmenopausal HPV vaccine status: No Cervical cancer screening: Completed today Vision Health: 1 year ago Dental Health: Upcoming appointment, goes biannually Diet: Does not follow any particular diet Exercise: No scheduled exercise regimen, would like to exercise more Problem Colon Cancer Screening 08/16/2024: Last colonoscopy on file 03/31/2016 and was requested for return in 5 years. She reports she did return in [address] Rahman and was told that she did not need to return for 10 years as no polyps were found. Encounter for Screening Mammogram for Malignant Neoplasm of Breast 08/16/2024: She reports she has upcoming mammogram scheduled at [facility] September 13, 2024 Cervical Cancer Screening Need for Prophylactic Vaccination Against Streptococcus Pneumoniae (Pneumococcus) 08/16/2024: She reports she has not previously received pneumonia vaccine. Travel Advice Encounter 08/16/2024: She reports she has upcoming cruise [place] with her grandkids in 2 weeksand is asking about hepatitis A vaccination. She reports she had measles as a kid. She reports she is received hepatitis B vaccine in the past. Nocturia 08/16/2024: She reports she gets up generally at least 2 times nightly to urinate and sometimes morefrequently. Pelvic Mass Mixed Hyperlipidemia 06/16/2024: At initial visit 06/02/2024, patient reported she has been previously prescribed atorvastatin however did not start prescription. Component Ref Range & Units 06/07/24 0801 CHOLESTEROL <200 MG/DL 211 High TRIGLYCERIDES <150 MG/DL 126 HDL >40 MG/DL 45 LDL-C <100 MG/DL 141 High VLDL CALCULATION 5 - 28 MG/DL 25 CHOL/HDL RATIO 0.0 - 4.0 4.7 High LDL/HDL 0.41 - 2.13 3.1 High NON HDL CHOLESTEROL <140 MG/DL 166 High 07/05/2024: Patient reports tolerating rosuvastatin 20 mg nightly well. She reports she has only missed 1 dose. She denies any complaints or concerns regarding medication. 08/16/2024: She reports she has been taking rosuvastatin 20 mg on a regular basis. Component Ref Range & Units 08/11/24 0821 CHOLESTEROL <200 MG/DL 92 TRIGLYCERIDES <150 MG/DL 79 HDL >40 MG/DL 42 LDL-C <100 MG/DL 34 VLDL CALCULATION 5 - 28 MG/DL 16 CHOL/HDL RATIO 0.0 - 4.0 2.2 LDL/HDL 0.41 - 2.13 0.8 NON HDL CHOLESTEROL <140 MG/DL 50 Agatston Coronary Artery Calcium Score Greater Than 400 06/16/2024: Reviewed patient's coronary artery calcium score from 03/06/2023 and Agatston score returned at 443 showing extensive plaque burden primarily in left anterior descending artery. Calcium scoring: Coronary artery score Left main (LM) 0 Left anterior descending (LAD) 347 Left circumflex (LCX) 29.3 Right Coronary Artery (RCA) 67.5 Total Agatston score 443 She reports she has occasional episodes of chest pain however they are brief. She reports she has not had one in a while. 08/16/2024: She has upcoming appointment with special class welder this Thursday. Osteopenia of Multiple Sites Initial visit 06/02/2024: Patient had DEXA scan 06/04/2023 which showed T-score -2.2 of lumbar spine and -1.0 at the left femoral neck. She had a previous DEXA scan in 2019 which also showed osteopenia. She reports she has calcium gummy vitamin supplement however does not take daily. 08/16/2024: She reports has been taking calcium supplementation and vitamin D supplementation. Class 1 Obesity Without Serious Comorbidity With Body Mass Index (Bmi) of 30.0 to 30.9 in Adult, Unspecified Obesity Type Initial visit 06/02/2024: She reports she is currently on Zepbound which she started in January 2024.She reports when she started this medication she was 2011 pounds. She reports she has worked her dose up to 15 mg weekly and just started 15 mg dose this past 2024. She denies any side effects of medication or symptoms of constipation or nausea. She reports she is previously tried Contrave medication with no significant results as well as Phentermine-Topamax with no significant weight loss results. 08/16/2024: Taking Zepbound 15 mg once weekly Depression Screening PHQ-9: 08/16/2024 10:34 AM 06/02/2024 8:38 AM PHQ2/PHQ 9 DEPRESSION SCREEN QUESTIONAIRE Little interest or pleasure in doing things Not at all Not at all Feeling down, depressed, or hopeless Not at all Not at all Patient Health Questionnaire-2 Score 0 0 Trouble falling or staying asleep, or sleeping too much Over half Feeling tired or having little energy Over half Poor appetite or overeating Not at all Feeling bad about yourself - or that you are a failure or have let yourself or your family down Notat all Trouble concentrating on things, such as reading the newspaper or watching television Not at all Moving or speaking so slowly that other people could have noticed? Or the opposite - being so fidgety or restless that you have been moving around a lot more than usual. Not at all Thoughts that you would be better off or hurting yourself in some way Not at all Patient Health Questionnaire-9 Score 4 How difficult have these problems made it for you to do your work, take care of things at home, or get along with other people? Not difficult at all Former Smoker Initial visit 06/02/2024: She reports she previously smoked 2 to 3 cigarettes a day on and off for many years. Need for Shingles Vaccine Initial visit 06/02/2024: Patient reports she does not receive shingles vaccine yet. She reports she did have chickenpox as a child. She is not averse to shingles vaccine. Current Outpatient Medications: Aspirin 81 MG Cap, Take 81 mg by mouth daily., Disp: , Rfl: rosuvastatin (CRESTOR) 20 MG tablet, Take 1 tablet (20 mg total) by mouth nightly at bedtime., Disp: 90 tablet, Rfl: 0 tirzepatide (ZEPBOUND) 15 MG/0.5ML injection, Inject 15 mg into the skin once a week. Indications: Elevation of Both Cholesterol and Triglycerides in Blood, Higher than Normal Blood Sugar not yet Considered Diabetes, Weight Loss, Disp: 2 mL, Rfl: 5 vitamin D2, ergocalciferol, (DRISDOL) 1.25 mg capsule, , Disp: , Rfl: Review of patient's allergies indicates: No Known Allergies Family History[1] Social History Socioeconomic History Marital status: Spouse name: Not on file Number of children: Not on file Years of education: Not on file Highest education level: Not on file Occupational History Not on file Tobacco Use Smoking status: Former Average packs/day: 1 pack/day for 23.0 years (23.0 ttl pk-yrs) Types: Cigarettes Start date: 1975 Passive exposure: Past Smokeless tobacco: Never Vaping Use Vaping status: Never Used Substance and Sexual Activity Alcohol use: Yes Comment: once a month Drug use: Never Sexual activity: Not Currently Other Topics Concern Not on file Social History Narrative Not on file Social Drivers of Health Financial Resource Strain: Not on file Food Insecurity: Not on file Transportation Needs: Not on file Physical Activity: Not on file Stress: Not on file Social Connections: Not on file Intimate Partner Violence: Not At Risk (05/21/2023) Received from [facility] Humiliation, Afraid, Rape, and Kick questionnaire Fear of Current or Ex-Partner: No Emotionally Abused: No Physically Abused: No Sexually Abused: No Housing Stability: Not on file ROS: Review of Systems Constitutional: Negative. HENT: Negative. Eyes: Negative. Respiratory: Negative. Cardiovascular: Negative. Gastrointestinal: Negative. Genitourinary: Negative. Musculoskeletal: Negative. Skin: Negative. Psychiatric/Behavioral: Negative. OBJECTIVE: Filed Vitals: 08/16/24 0931 BP: 110/68 Pulse: 77 Resp: 16 Temp: 97.7 ??F (36.5 ??C) TempSrc: Temporal SpO2: 98% Weight: 84.8 kg (187 lb) Height: 1.676 m (5' 6 ) Physical Exam Vitals reviewed. Exam conducted with a java web architect present (MA: Kathy Hernandez). Constitutional: General: She is not in acute distress. Appearance: Normal appearance. She is normal weight. HENT: Head: Normocephalic and atraumatic. Eyes: Extraocular Movements: Extraocular movements intact. Conjunctiva/sclera: Conjunctivae normal. Cardiovascular: Rate and Rhythm: Normal rate and regular rhythm. Heart sounds: Normal heart sounds. Pulmonary: Effort: Pulmonary effort is normal. No respiratory distress. Breath sounds: Normal breath sounds. Chest: Chest wall: No mass, lacerations, deformity, swelling, tenderness or crepitus. Breasts: Abilio Score is 5. Breasts are symmetrical. Right: Normal. Left: Normal. Abdominal: General: There is no distension. Palpations: Abdomen is soft. There is mass. Tenderness: There is no abdominal tenderness. There is no guarding. Comments: Approximately 4 cm in width suprapubic hard, abdominal mass. No tenderness to palpation. Genitourinary: General: Normal vulva. Exam position: Lithotomy position. Pubic Area: No rash. Abilio stage (genital): 5. Labia: Right: No rash, tenderness, lesion or injury. Left: No rash, tenderness, lesion or injury. Urethra: No urethral swelling or urethral lesion. Vagina: Normal. Cervix: Lesion present. No discharge, friability, erythema or cervical bleeding. Adnexa: Right adnexa normal and left adnexa normal. Comments: Flat, approximately 1 cm lesion on cervix approximately 11:00. No viability of cervix appreciated. Lymphadenopathy: Upper Body: Right upper body: No axillary or pectoral adenopathy. Left upper body: No axillary or pectoral adenopathy. Skin: General: Skin is warm and dry. Neurological: General: No focal deficit present. Mental Status: She is alert. Gait: Gait normal. Psychiatric: Mood and Affect: Mood normal. Behavior: Behavior normal. Thought Content: Thought content normal. Laboratory Only on 08/11/2024 Component Date Value Ref Range Status CHOLESTEROL 08/11/2024 92 <200 MG/DL Final TRIGLYCERIDES 08/11/2024 79 <150 MG/DL Final HDL 08/11/2024 42 >40 MG/DL Final LDL-C 08/11/2024 34 <100 MG/DL Final VLDL CALCULATION 08/11/2024 16 5 - 28 MG/DL Final CHOL/HDL RATIO 08/11/2024 2.2 0.0 - 4.0 Final LDL/HDL 08/11/2024 0.8 0.41 - 2.13 Final NON HDL CHOLESTEROL 08/11/2024 50 <140 MG/DL Final ] ASSESSMENT AND PLAN Maegan Sheets is a 64-year-old female Health Care Maintenance: Prevention: - Cervical cancer screening completed today - STD screening declined/not indicated - Family planning: Postmenopausal - Colon cancer screening will obtain record - Diabetes screening completed 06/16/2024 with A1c 5.4% - Lipid panel screening completed 06/07/2024. The ASCVD Risk score (Kina LY, et al., 2019) failed to calculate for the following reasons: The valid total cholesterol range is 130 to 320 mg/dL - Discussed diet changes and exercise - Discussed nutrition, physical activity, healthy weight, injury prevention, avoidance of tobacco, alcohol and drugs, dental health, immunizations, screenings - Breast cancer screening: Scheduled September 13, 2024 at [facility] - Immunizations: Tdap due 09/13/2024, Prevnar 20 DUE, Shingrix second dose due 08/30/2024, and Flu recommend to receive influenza vaccine December or January 2025 - Depression screening: neg - Lung cancer screening declined/not indicated - DEXA: Provided calcium and vitamin D recommendations. Last DEXA 06/04/2023 - Tobacco use In remission greater than 20 years - HCPOA discussed. Code status FULL Depression screening Depression screening negative. Discussed with patient. She endorsed no questions. Suspect the questions that she did answer to regarding energy and sleeping are related to possible sleep breathing disorder for which we are ordering [facility] home sleep study. If anything changes with her mood, she is asked to return for reevaluation. Need for prophylactic vaccination against Streptococcus pneumoniae (pneumococcus) She is due for Prevnar 20. She is counseled on vaccine and potential side effects of vaccine. She was given CDC VIS. Travel advice encounter Per [facility], patient will need to receive initial dose of hepatitis A vaccine as well as immune globulin at the same time. She is recommended to go to health department as we do not have immune globulin in office. Colon cancer screening Will attempt to request records again from Dr. Rahman regarding more recent colonoscopy. Nocturia Discussed with patient that this is concerning and I would like to order sleep study to evaluate for sleep breathing disorder. Encounter for screening mammogram for malignant neoplasm of breast Will plan to request results from mammogram Mixed hyperlipidemia Lipid panel improved incredibly after addition of statin. Continue rosuvastatin 20 mg once daily. Osteopenia of multiple sites She was provided calcium and vitamin D recommendations per National osteoporosis foundation. Need for shingles vaccine Due for second dose of shingles vaccine on or after August 30, 2024 Class 1 obesity without serious comorbidity with body mass index (BMI) of 30.0 to 30.9 in adult, unspecified obesity type Continue Zepbound 15 mg twice daily. Ordering home sleep study in the setting of patient's nocturia, snoring and obesity. 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 Counseled to not participate in vigorous physical activity until cleared by cardiology. Former smoker Patient does not need to participate in lung cancer screening with low-dose CT as she quit smoking many years ago and only smoked a very small amount. Pelvic mass Suprapubic pelvic mass palpated on physical exam. Patient has no current symptoms of pain, changes in bowel movements, vaginal bleeding. We need to evaluate with CT abdomen pelvis with and without IVcontrast. We have faxed order over to [facility] in [place], [place] for patient to have completed. Lab: None Specified Return in about 4 weeks (around 09/13/2024) for Follow-up sleep study, second dose shingles, CT abdomen and pelvis. TWYLA CHEEMA, DO Family Practice [1] Family History Problem Relation Name Age of Onset Hypertension Mother Karime Stroke Mother Karime Heart Disease Mother Karime Thyroid Disease Mother Karime Hypertension Father Daniele Heart Disease Father Daniele Diabetes Father Daniele Throat cancer Father Daniele pharyngeal Cancer Father Daniele No Known Problems Sister No Known Problems Sister No Known Problems Sister Diabetes Brother No Known Problems Daughter No Known Problems Daughter Other (diaphragmatic hernia) Son Other (Concussion) Son Stroke Maternal Grandmother Colon Cancer Paternal Grandfather documented in this encounter Plan of Treatment Upcoming Encounters Date Type Department Care Team (Late st Contact Info) Description 08/23/2024 7:15 PM CDT Appointment [facility] Sleep Lab [address] [place] [address] Twyla Cheema, DO [address] [place] [address] 09/13/2024 1:40 PM CDT Office Visit [facility] [place] [address] [place] [address] Twyla Cheema, DO [address] [place] [address] Pending Results Name Type Priority Associated Diagnoses Date /Time Cytopath Cerv/Vag Thin Layer Pathology and Cytology Routine Cervical cancer screening 08/16/2024 11:12 AM CDT Scheduled Orders Name Type Priority Associated Diagnoses Orde r Schedule Cytopath Cerv/Vag Thin Layer Pathology and Cytology Routine Cervical cancer screening Expected: 08/16/2024, Expires: 08/15/2025 Home Sleep Study - [facility] ([id number]) [facility] Routine Nocturia Snoring Class 1 obesity without serious comorbidity with body mass index (BMI) of 30.0 to 30.9 in adult, unspecified obesity type Expected: 08/23/2024 (Approximate), Expires: 08/16/2025 BRIEF EMOTIONAL/BEHAVIORAL ASSESSMENT Procedures Routine Depression screening Ordered: 08/16/2024 CT ABD+PEL WWO CON CT STAT Pelvic mass Expected: 08/18/2024, Expires: 08/18/2025 documented as of this encounter Visit Diagnoses Diagnosis Pelvic mass- Primary Abdominal or pelvic swelling, mass or lump, unspecified site Nocturia Snoring Other dyspnea and respiratory abnormality Agatston coronary artery calcium score greater than 400 Nonspecific (abnormal) findings on radiological and other examination of other intrathoracic organs Osteopenia of multiple sites Mixed hyperlipidemia Postmenopausal Asymptomatic postmenopausal status (age-related) (natural) Class 1 obesity without serious comorbidity with body mass index (BMI) of 30.0 to 30.9 in adult, unspecified obesity type Encounter for well woman exam with routine gynecological exam Cervical cancer screening Screening for malignant neoplasm of the cervix Colon cancer screening Special screening for malignant neoplasms, colon Encounter for screening mammogram for malignant neoplasm of breast Other screening mammogram Depression screening Screening for depression Need for prophylactic vaccination against Streptococcus pneumoniae (pneumococcus) Need for prophylactic vaccination against streptococcus pneumoniae (pneumococcus) Travel advice encounter Need for shingles vaccine Need for prophylactic vaccination and inoculation against other viral diseases Former smoker Personal history of tobacco use, presenting hazards to health Wears prescription eyeglasses documented in this encounter Additional Health Concerns Assessment Noted Time PHQ-9 Depression Total Score: 4 08/17/19 25 10:34 AM CDT documented as of this encounter Care Teams Millinery Blocker Relationship Specialty Start Date End Date Twyla Cheema DO [address] [place] [address] PCP - General FAMILY PRACTICE 05/10/24 documented as of this encounter
--- OUTSIDE RECORDS SUMMARY | 2024-08-19 13:34 | XMS_ITS | Clinical Summary ---
Author Organization [facility] Address [address] [place] [address] Care Team Providers Care Revenue Cycle Consultant Name Role Phone Twyla Cheema DO Primary Care Provider [phone] Allergies No known active allergies Medications Aspirin 81 MG Cap Take 81 mg by mouth daily. 05/16/19 24 Active vitamin D2, ergocalciferol, (DRISDOL) 1.25 mg capsule Active tirzepatide (ZEPBOUND) 15 MG/0.5ML injectionIndicatio ns:Mixed Dyslipidemia,Predi abetes,Weight Loss Inject 15 mg into the skin once a week. Indications: Elevation of Both Cholesterol and Triglycerides in Blood, Higher than Normal Blood Sugar not yet Considered Diabetes, Weight Loss 2 mL 5 07/06/19 25 025 Active rosuvastatin (CRESTOR) 20 MG tabletIndications: Mixed hyperlipidemia Take 1 tablet (20 mg total) by mouth nightly at bedtime. 90 tablet 07/06/19 25 025 Active Active Problems Problem Noted Date Diagnosed Date Colon cancer screening 08/16/2024 Overview (08/16/2024): 08/16/2024: Last colonoscopy on file 03/31/2016 and was requested for return in 5 years. She reports she did return in [address] Rahman and was told that she did not need to return for 10 years as no polyps were found. Assessment & Plan (08/16/2024 10:58 AM CDT): Will attempt to request records again from Dr. Rahman regarding more recent colonoscopy. Encounter for screening mamm ogram for malignant neoplasm of breast 08/16/2024 Overview (08/16/2024): 08/16/2024: She reports she has upcoming mammogram scheduled at [facility] September 13, 2024 Assessment & Plan (08/16/2024 11:19 AM CDT): Will plan to request results from mammogram Cervical cancer screening 08/16/2024 Need for prophylactic vaccin ation against Streptococcus pneumoniae (pneumococcus) 08/16/2024 Overview (08/16/2024): 08/16/2024: She reports she has not previously received pneumonia vaccine. Assessment & Plan (08/16/2024 10:53 AM CDT): She is due for Prevnar 20. She is counseled on vaccine and potential side effects of vaccine. She was given CDC VIS. Travel advice encounter 08/16/2024 Overview (08/16/2024): 08/16/2024: She reports she has upcoming cruise to [facility] and [place] with her grandkids in 2 weeks and is asking about hepatitis A vaccination. She reports she had measles as a kid. She reports she is received hepatitis B vaccine in the past. Assessment & Plan (08/16/2024 10:55 AM CDT): Per CDC, patient will need to receive initial dose of hepatitis A vaccine as well as immune globulin at the same time. She is recommended to go to health department as we do not have immune globulin in office. Nocturia 08/16/2024 Overview (08/16/2024): 08/16/2024: She reports she gets up generally at least 2 times nightly to urinate and sometimes more frequently. Assessment & Plan (08/16/2024 10:59 AM CDT): Discussed with patient that this is concerning and I would like to order sleep study to evaluate for sleep breathing disorder. Pelvic mass 08/16/2024 Assessment & Plan (08/16/2024 11:25 AM CDT): Suprapubic pelvic mass palpated on physical exam. Patient has no current symptoms of pain, changes in bowel movements, vaginal bleeding. We need to evaluate with CT abdomen pelvis with and without IV contrast. We have faxed order over to [facility] in [place], [place] for patient to have completed. Wears prescription eyeglasses 08/16/2024 Overview (08/16/2024): 08/16/2024: She reports she last had annual eye exam last year. Mixed hyperlipidemia 06/16/2024 Overview (08/16/2024): 06/16/2024: At initial visit 06/02/2024, patient reported [...] 0.8 NON HDL CHOLESTEROL <140 MG/DL 50 Assessment & Plan (08/16/2024 11:20 AM CDT): Lipid panel improved incredibly after addition of statin. Continue rosuvastatin 20 mg once daily. Assessment & Plan (07/05/2024 9:28 AM CDT): Will plan to repeat fasting lipid panel in approximately 2 weeks. Continue rosuvastatin 20 mg nightly at this time. Assessment & Plan (06/16/2024 1:28 PM FUEL CELL REPAIRER): Reviewed outside documentation of coronary artery calcium score and score was over 400 showing extensive plaque burden. Recommend patient start statin as cholesterol panel is elevated and the CT coronary artery calcium score is high. The 10-year ASCVD risk score (Kina LY, et al., 2019) is: 6.5% Values used to calculate the score: Age: 64 years Sex: Female Is Non- : No Diabetic: No Tobacco smoker: No Systolic Blood Pressure: 131 mmHg Is BP treated: No HDL Cholesterol: 45 MG/DL Total Cholesterol: 211 MG/DL Discussed with patient that her ASCVD risk score does not necessarily necessitate starting cholesterol-lowering medication however in the setting of her high cholesterol and coronary artery calcium score, I would recommend starting her on moderate to high intensity statin. We agreed to start with rosuvastatin 20 mg daily at nighttime. Patient counseled on potential side effects and instructed to notify the office if she experiences any significant side effects. She is counseled on dietary interventions that can help decrease cholesterol such as increasing intake of dietary fiber through legumes or whole grains among others. Decreased glomerular filtration rate (GFR) 06/16 Overview (06/16/2024): 06/16/2024: From [facility] 06/07/2024 GFR ESTIMATE >90 ML/MIN/1.73 M2 73 Assessment & Plan (06/16/2024 1:33 PM FUEL CELL REPAIRER): Discussed with patient her decreased GFR. This appears decrease even further from last labs I have on file from 12/10/2021. Discussed with patient that we can repeat in 3 months to see if GFR changes. Patient does not have underlying overt diabetes or hypertension. If GFR continues to remain at a similar number, we could consider starting low-dose SAEED/ARB for renal protection. Agatston coronary artery calcium score greater t stevens 400 06/16/2024 Overview (08/16/2024): 06/16/2024: Reviewed patient's coronary artery calcium score [...] while. 08/16/2024: She has upcoming appointment with assistant professor of dietetics this Thursday. Assessment & Plan (08/16/2024 11:23 AM CDT): Continue daily aspirin and rosuvastatin. Counseled to not participate in vigorous physical activity until cleared by cardiology. Assessment & Plan (06/16/2024 1:36 PM FUEL CELL REPAIRER): The results of this were discussed with patient and we agreed upon cardiology referral as she may need stress testing in the setting of the score and her mixed hyperlipidemia. Referral placed for cardiology. Patient requesting female provider so referral has been placed for Dr. Rogel. Patient instructed to continue taking baby aspirin 81 mg daily. Osteopenia of multiple sites 06/02/2024 Overview (08/16/2024): Initial visit 06/02/2024: Patient had DEXA scan 06/04/2023 which showed T-score -2.2 of lumbar spine and -1.0 at the left femoral neck. She had a previous DEXA scan in 2019 which also showed osteopenia. She reports she has calcium gummy vitamin supplement however does not take daily. 08/16/2024: She reports has been taking calcium supplementation and vitamin D supplementation. Assessment & Plan (08/16/2024 11:21 AM CDT): She was provided calcium and vitamin D recommendations per National osteoporosis foundation. Assessment & Plan (06/16/2024 1:29 PM FUEL CELL REPAIRER): The National Osteoporosis Foundation recommends women over 50 should aim for 1200 mg of calcium per day which can be obtained from dietary sources such as dairy products, leafy greens, fortified foods and certain fish and supplementation can be taken if dietary intake is insufficient via calcium carbonate or calcium citrate. Vitamin D also enhances calcium absorption and recommended intake is 800 to 1000 IUs/day. I recommend you take 1000 IUs/day. Assessment & Plan (06/02/2024 9:57 AM FUEL CELL REPAIRER): She is provided calcium and vitamin D recommendations per National osteoporosis foundation. Also counseled on importance of resistance training in relation to bone health. Class 1 obesity without seri ous comorbidity with body mass index (BMI) of 30.0 to 30.9 in adult, unspecified obesity type 06/02/2024 Overview (08/16/2024): Initial visit 06/02/2024: She reports she is currently on Zepbound which she started in January 2024. She reports when she started this medication she [...] 08/16/2024: Taking Zepbound 15 mg once weekly Assessment & Plan (08/16/2024 11:23 AM CDT): Continue Zepbound 15 mg twice daily. Ordering home sleep study in the setting of patient's nocturia, snoring and obesity. Assessment & Plan (07/05/2024 9:27 AM CDT): Patient's weight is fairly stable from last visit. Continue Zepbound 15 mg once weekly. Refill placed to pharmacy. Assessment & Plan (06/02/2024 10:00 AM FUEL CELL REPAIRER): Labs are ordered at this time. Patient counseled that long-term sequelae of these GLP-1 medications are undetermined at this time however patient is counseled to participate in weight resistance training in affect to help promote and maintain bone health. Depression screening 06/02/2024 Overview (08/16/2024): PHQ-9: 08/16/2024 10:34 AM 06/02/2024 8:38 AM [...] or your family down Not at all Trouble concentrating on things, such as [...] with other people? Not difficult at all Assessment & Plan (08/16/2024 10:35 AM CDT): Depression screening negative. Discussed with patient. She endorsed no questions. Suspect the questions that she did answer to regarding energy and sleeping are related to possible sleep breathing disorder for which we are ordering [employer] home sleep study. If anything changes with her mood, she is asked to return for reevaluation. Assessment & Plan (06/02/2024 10:03 AM FUEL CELL REPAIRER): Depression screening negative. This was discussed with patient and she endorsed no questions. Chronic sinusitis, unspecified location 06/02/19 25 Overview (06/02/2024): Initial visit 06/02/2024: She is requesting referral to ENT. She reports she has difficulty breathing at nighttime when she lays down and uses generic Ryan- Synephrine nasal spray nightly once. She reports she has had sinus issues for a long period of time. Assessment & Plan (06/02/2024 10:02 AM FUEL CELL REPAIRER): Counseled patient to discontinue Ryan-Synephrine nasal spray as she likely has rebound congestion from chronically using this type of nasal spray. She is counseled that she can use nasal saline as a mild decongestion and sbdl-del-tuogeip Flonase/fluticasone 1 spray in each nostril daily steroid nasal spray to help decrease inflammation and promote nasal breathing at nighttime. If does not improve, we can refer to ENT. Patient is agreeable to plan. Former smoker 06/02/2024 Overview (06/02/2024): Initial visit 06/02/2024: She reports she previously smoked 2 to 3 cigarettes a day on and off for many years. Assessment & Plan (08/16/2024 11:24 AM CDT): Patient does not need to participate in lung cancer screening with low-dose CT as she quit smoking many years ago and only smoked a very small amount. Assessment & Plan (06/02/2024 10:00 AM FUEL CELL REPAIRER): Based on patient's description of smoking history, I do not think she is a candidate for lung cancer screening with low-dose CT. This was communicated to patient. Postmenopausal 06/02/2024 Overview (06/02/2024): Initial visit 06/02/2024: She reports she went through menopause around age 49. Need for shingles vaccine 06/02/2024 Overview (07/05/2024): Initial visit 06/02/2024: Patient reports she does not receive shingles vaccine yet. She reports she did have chickenpox as a child. She is not averse to shingles vaccine. Assessment & Plan (08/16/2024 11:22 AM CDT): Due for second dose of shingles vaccine on or after August 30, 2024 Assessment & Plan (07/05/2024 9:27 AM CDT): Plan to give first dose of shingles vaccine today in office. Patient provided CDC VIS. She is counseled on potential side effects. Assessment & Plan (06/02/2024 10:10 AM FUEL CELL REPAIRER): She is counseled regarding shingles vaccine and recommendation for 2 doses and recommendation prior to age 70. Prediabetes 10/02/2020 Overview (06/16/2024): 06/02/2024: Initial visit 06/02/2024: She reports she has never been diagnosed with overt diabetes. She reports she has previously been prescribed metformin however did not start. She reports she checks her fasting blood glucose weekly on Sundays and it ranges typically from 99-116. She is currently on Zepbound 15 mg weekly and denies side effects. 06/16/2024: She continues to remain on Zepbound 15 mg weekly and denies side effects. She is requesting refill. Fasting blood glucose returned at 102 on CMP 06/07/2024. Assessment & Plan (06/16/2024 1:31 PM FUEL CELL REPAIRER): In office hemoglobin A1c returned at 5.4%. Will continue Zepbound if covered and dietary and lifestyle recommendations still stand. Assessment & Plan (06/02/2024 9:56 AM FUEL CELL REPAIRER): Hemoglobin A1c and fasting blood glucose ordered. Vitamin D deficiency 11/24/2018 Overview (06/16/2024): Initial visit 06/02/2024: She reports she has been low on vitamin D in the past and was supplementing for a while but ran out. She reports last time she had her labs checked was around a year ago. 06/16/2024: Component Ref Range & Units 06/07/24 0801 VITAMIN D 25 HYDROXY TOTAL S/P/B 30 - 100 NG/ML 15.8 Low Assessment & Plan (06/16/2024 1:31 PM FUEL CELL REPAIRER): Discussed with patient at length that we could do high-dose vitamin D supplementation once weekly or we can even do vitamin D3 5000 to 10,000 IU daily with food or discontinue with recommendations per National osteoporosis foundation and patient take 1000 IU daily with calcium. Discussed with patient that I recommend she at least take vitamin D3 1000 IU daily with food. Assessment & Plan (06/02/2024 9:55 AM FUEL CELL REPAIRER): Vitamin D levels ordered Resolved Problems Problem Noted Date Diagnosed Date Resolved Date Encounter for screening for cardiovascular disorders 03/11/2023 06/02/2024 Internal derangement of right knee 03/08/2020 06/02/2024 Acquired hypothyroidism 11/24/201809/2024 Encounters Date Type Department Care Team Description 08/16/2024 10:46 AM CDT - 08/16/2024 11:59 PM CDT Hospital Encounter [facility] [address] [facility] [place] [place] [address] Twyla Cheema, DO Discharge Disposition: Home or Self Care (Routine Discharge) 08/16/2024 9:20 AM CDT [facility] [place] [address] [place] [address] Twyla Cheema, Inspector Bullet Slugs Exam (Labs done 05/2024) 08/16/2024 MyChart Message [facility] [place] [address] [place] [address] Twyla Cheema, DO Insurance question 08/16/2024 Travel 08/11/2024 8:20 AM CDT Laboratory Only [facility] [place] [address] [place] [address] Twyla Cheema, 08/11/2024 Results Follow-Up [place] [address] [facility] [address] [place] [address] Twyla Cheema, DO LIPID PANEL 08/11/2024 Travel 07/07/2024 Telephone [place] [address] [facility] [address] [place] [address] Twyla Cheema, DO Record Request 07/05/2024 8:20 AM CDT Office Visit [place] [address] [place] [address] Twyla Cheema, DO Hyperlipidemia 07/05/2024 Travel 06/16/2024 10:40 AM FUEL CELL REPAIRER Office Visit [place] [address] [facility] [address] [place] [address] Twyla Cheema, DO Follow Up (Labs done /In chart A1c not done /) 06/16/2024 Travel 06/13/2024 Telephone [place] [address] [facility] [address] [place] [address] Twyla Cheema, DO Record Request 06/07/2024 Travel 06/02/2024 8:00 AM FUEL CELL REPAIRER Office Visit [place] [address] [facility] [address] [place] [address] Twyla Cheema, DO New Patient (Pt states she wants labs. Pt states she wants to see ENT for sinus issues. ); Establish Care 06/02/2024 Travel from Last 3 Months Immunizations Immunization Administration Dates Next Due FLUAD (IIV, Trivalent, 0.5 M L Pre-filled Syringe) 03/10/2024 Influenza (Generic) 02/06/2023, 2,01/25/2021,2019 Pneumococcal (Prevnar 20) 08/16/2024 Shingrix 07/05/2024 Tdap (Generic) 09/13/2014 Family History Medical History Relation Comments Diabetes Brother 2 No Known Problems Daughter 1 No Known Problems Daughter 2 Cancer Father Diabetes Father Heart Disease Father Hypertension Father Throat cancer Father pharyngeal Stroke Maternal Grandmother Heart Disease Mother Hypertension Mother Stroke Mother Thyroid Disease Mother Colon Cancer Paternal Grandfather No Known Problems Sister 1 No Known Problems Sister 2 No Known Problems Sister 3 diaphragmatic hernia Son 1 Concussion Son 2 Relation Status Comments Brother 1 Alive Brother 2 Alive Daughter 1 Alive Daughter 2 Alive Father Maternal Grandfather Maternal Grandmother Mother Alive Paternal Grandfather Paternal Grandmother Sister 1 Alive Sister 2 Alive Sister 3 Alive Son 1 Son 2 Alive Social History Tobacco Use Types Packs/Day Years Used Date Smoking Tobacco: Former Cigarettes 1 23 S tarted: 1975 Passive Smoke Exposure: Past Smokeless Tobacco: Never Tobacco Cessation:Counseling Given: No Alcohol Use Standard Drinks/Week Comments Yes 0 (1 standard drink = 0.6 oz pur e alcohol) once a month PHQ-2 Answer Date Recorded Patient Health Questionnaire-2 Score 0 08/16/2024 Comments No Sex and Gender Information Value Date Recorded Sex Assigned at Female 06/02/2024 8:25 AM FUEL CELL REPAIRER Legal Sex Female 2:00 PM CDT Gender Identity Female 06/02/2024 8:25 AM FUEL CELL REPAIRER Sexual Orientation Not on file Last Filed [...] Mass Index 30.18 08/16/2024 9:31 AM CDT Plan of Treatment Upcoming Encounters Date Type Department Care Team (Late st Contact Info) Description 08/23/2024 7:15 PM CDT Appointment [facility] [address] [place] [address] Twyla Cheema, DO [address] [place] [address] 09/13/2024 1:40 PM CDT Office Visit [facility] [place] [address] [place] [address] Twyla Cheema M, DO [address] [place] [address] Health Maintenance Due Date Last Done Comments Colorectal Cancer Screening Colonoscopy (10 Years) 03/31/2021 03/31/2016 Mammogram Screening 06/04/2024 06/04/2023, 02/04/2022, 05/15/2020, Additional history exists Zoster Vaccines (2 of 2) 08/30/2024 07/05/2024 DTaP, Tdap and Td Vaccines (2 - Td or Tdap) 09/13/2024 09/13/2014 Lung Cancer Screening 06/02/2025 Postpo twila from 2009 (Patient Refused) Dexa Scan (General) 06/04/2025 06/04/2023, 06/04/2023, 11/11/2018 COVID-19 Vaccine (3 - 2023- season) 2025 05/22/2020, 04/24/2020 Postponed from 12/27/2023 (Patient Refused) RSV Immunization or 60+ Years (1 - 1-dose 75+ series) 2034 Hepatitis C Addressed 05/15/2020 (Prev iously completed) Overridden with the intention of not completing the topic PHQ-2 (Physician Homer) Completed 08/16/2024 Pneumococcal Vaccine: 50+ Years Completed 08/16/2024 Meningococcal B Vaccine Aged Out No l onger eligible based on patient's age to complete this topic Meningococcal Vaccine Aged Out No aniyah mukul eligible based on patient's age to complete this topic RSV Immunizations Under 20 Months Aged Out No longer eligible based on patient's age to complete this topic Procedures Procedure Name Priority Date/Time Associated Diagnosis Comments COLLECTION VENOUS BLOOD VENIPUNCTURE Routine 08/11/2024 8:21 AM CDT Mixed hyperlipidemia LIPID PANEL Routine 08/11/2024 8:21 AM CDT Mixed hyperlipidemia URINALYSIS, AUTO, COMPLETE Routine 06/16/2024 12:37 PM FUEL CELL REPAIRER Class 1 obesity without serious comorbidity with body mass index (BMI) of 30.0 to 30.9 in adult, unspecified obesity type COLLECT.CAPILLARY (FNGR,HEEL,EAR) Routine 06/16/2024 12:33 PM FUEL CELL REPAIRER Mixed hyperlipidemia Prediabetes HEMOGLOBIN, GLYCOSYLATED Routine 06/16/2024 Prediabetes COMPREHENSIVE METABOLIC PANEL Routine 06/07/2024 8:01 AM FUEL CELL REPAIRER Class 1 obesity without serious comorbidity with body mass index (BMI) of 30.0 to 30.9 in adult, unspecified obesity type LIPID PANEL Routine 06/07/2024 8:01 AM FUEL CELL REPAIRER Class 1 obesity without serious comorbidity with body mass index (BMI) of 30.0 to 30.9 in adult, unspecified obesity type Hypertriglyceridemia VITAMIN D, 25 OH Routine 06/07/2024 8:01 AM FUEL CELL REPAIRER Vitamin D deficiency Class 1 obesity without serious comorbidity with body mass index (BMI) of 30.0 to 30.9 in adult, unspecified obesity type TSH W/REFLEX Routine 06/07/2024 8:01 AM FUEL CELL REPAIRER Class 1 obesity without serious comorbidity with body mass index (BMI) of 30.0 to 30.9 in adult, unspecified obesity type COLONOSCOPY GENERIC (SCAN ORDER) 03/31/2016 from Last 3 Months or Most Recently Relevant to Health Maintenance Results * LIPID PANEL (08/11/2024 8:21 AM CDT) Only the most recent of2 resultswithin the time period is included. [facility] CHOLESTEROL 92 <200 MG/DL 08/11/2024 4:41 PM CDT [facility] TRIGLYCERIDES 79 <150 MG/DL 08/11/2024 4:41 PM CDT [facility] HDL 42 >40 MG/DL 08/11/2024 4:41 PM CDT [facility] LDL-C 34 <100 MG/DL 08/11/2024 4:41 PM CDT [facility] VLDL CALCULATION 16 5 - 28 MG/DL 08/11/2024 4:41 PM CDT [facility] CHOL/HDL RATIO 2.2 0.0 - 4.0 08/11/2024 4:41 PM T [facility] LDL/HDL 0.8 0.41 - 2.13 08/11/2024 4:41 PM T [facility] NON HDL CHOLESTEROL 50 <140 MG/DL 08/11/2024 4:41 PM T [facility] 08/11/2024 8:21 AM CDT Twyla Cheema DO LABORATORY Final Result [facility] [address] [place] [address], * (ABNORMAL) URINALYSIS (06/16/2024 12:37 PM FUEL CELL REPAIRER) COLOR (U) YELLOW 06/16/2024 7:38 PM FUEL CELL REPAIRER [facility] TRANSPARENCY CLOUDY(A) CLEAR 06/16/2024 7:38 PM FUEL CELL REPAIRER [facility] SPECIFIC GRAVITY (U) 1.025 1.003 - 1.040 06/16/2024 7:38 PM FUEL CELL REPAIRER [facility] U PH 5.5 5.0 - 9.0 06/16/2024 7:38 PM FUEL CELL REPAIRER [facility] PROTEIN RANDOM (U) NEGATIVE NEGATIVE 06/16/2024 7:38 PM FUEL CELL REPAIRER [facility] GLUCOSE (U) NEGATIVE NEGATIVE 06/16/2024 7:38 PM FUEL CELL REPAIRER [facility] KETONES MG/DL (U) NEGATIVE NEGATIVE 06/16/2024 7:38 PM FUEL CELL REPAIRER [facility] BILIRUBIN (U) NEGATIVE NEGATIVE 06/16/2024 7:38 PM FUEL CELL REPAIRER [facility] BLOOD (U) NEGATIVE NEGATIVE 06/16/2024 7:38 PM FUEL CELL REPAIRER [facility] UROBILINOGEN 0.2 0.0 - 2.0 EU/DL 06/16/2024 7:38 PM FUEL CELL REPAIRER [facility] NITRITES NEGATIVE NEGATIVE 06/16/2024 7:38 PM FUEL CELL REPAIRER [facility] LEUKOCYTES (U) NEGATIVE NEGATIVE 06/16/2024 7:38 PM FUEL CELL REPAIRER [facility] RBC/HPF 0-3 0 - 3 /HPF 06/16/2024 7:38 PM FUEL CELL REPAIRER [facility] WBC/HPF 0-3 0 - 3 /HPF 06/16/2024 7:38 PM FUEL CELL REPAIRER [facility] EPI/HPF 0-3 /HPF 06/16/2024 7:38 PM FUEL CELL REPAIRER [facility] BACTERIA (U) TRACE(A) NONE SEEN 06/16/2024 7:38 PM FUEL CELL REPAIRER [facility] AMORPHOUS SEDIMENT PRESENT 06/16/2024 7:38 PM FUEL CELL REPAIRER [facility] URINE SPECIMEN FROM URETHRA / Unknown 06/16/2024 12:37 PM FUEL CELL REPAIRER Twyla Cheema DO URINE ORDERABLES Final Result [facility] [address] [place] [address], * A1C (BACK OFFICE) (06/16/2024) HGB A1C 5.4 % [address] [place] 06/16/2024 Twyla Cheema DO LABORATORY Final Result [address] [place] [address] [facility] [address] [place] [address], * TSH W/REFLEX (06/07/2024 8:01 AM FUEL CELL REPAIRER) TSH 2.517 0.358 - 3.740 uIU/ML 06/07/2024 5:54 PM FUEL CELL REPAIRER [facility] 06/07/2024 8:01 AM FUEL CELL REPAIRER Twyla Ramya Cheema DO LABORATORY Final Result Performing Organization Address City/[facility]/ZIP Co de Phone Number [facility] [place] [address] [place] [address], [place] [phone] * (ABNORMAL) COMPREHENSIVE METABOLIC PANEL (06/07/2024 8:01 AM FUEL CELL REPAIRER) Pathologist [facility] SODIUM S/P/B 142 136 - 145 MMOL/L 06/07/2024 5:54 PM FUEL CELL REPAIRER [facility] POTASSIUM S/P/B 4.4 3.5 - 5.1 MMOL/L 06/07/2024 5:54 PM FUEL CELL REPAIRER [facility] CHLORIDE S/P/B 106 98 - 107 MMOL/L 06/07/2024 5:54 PM [facility] CO2 28.1 21 - 32 MMOL/L 06/07/2024 5:54 PM FUEL CELL REPAIRER [facility] GLUCOSE 102(H) 70 - 99 MG/DL 06/07/2024 5:54 PM [facility] BUN 19(H) 7 - 18 MG/DL 06/07/2024 5:54 PM [facility] CREATININE S/P/B 0.88 0.55 - 1.02 MG/DL 06/07/2024 5:54 PM [facility] CALCIUM S/P/B 8.9 8.4 - 10.5 MG/DL 06/07/2024 5:54 PM [facility] BILIRUBIN TOTAL S/P/B 0.3 0.2 - 1.0 MG/DL 06/07/2024 5:54 PM [facility] ALKALINE PHOSPHATASE S/P/B 65 50 - 130 U/L 06/07/2024 5:54 PM [facility] AST 19 15 - 37 U/L 06/07/2024 5:54 PM [facility] ALT 34 14 - 59 U/L 06/07/2024 5:54 PM [facility] TOTAL PROTEIN S/P/B 7.0 6.4 - 8.2 G/DL 06/07/2024 5:54 PM [facility] ALBUMIN S/P/B 3.9 3.4 - 5.0 G/DL 06/07/2024 5:54 PM [facility] ANION GAP 7.9 5 - 15 MMOL/L 06/07/2024 5:54 PM [facility] Comment:REFERENCE RANGE NOT ESTABLISHED OSMOLALITY (CALC) 296 MOSM/KG 025 5:54 PM [facility] Comment:REFERENCE RANGE NOT ESTABLISHED GFR ESTIMATE 73(L) >90 ML/MIN/1. 73 M2 06/07/2024 5:54 PM [facility] GFR NOTES GFR REFERENCE S: 06/07/2024 5:54 PM [facility] Comment: THE ESTIMATED GFR IS CALCULATED USING THE 2020 CKD-EPI EQUATION. THE FOLLOWING CATEGORIES FOR GRADING RENAL FUNCTION ARE RECOMMENDED BY THE INTERNATIONAL SOCIETY OF NEPHROLOGY (KDIGO 2012 CLINICAL PRACTICE GUIDELINE). G1,NORMAL OR HIGH: >89 ml/min/1.73 m2 G2,MILDLY DECREASED: 60-89 ml/min/1.73 m2 G3A,MILDLY TO MODERATELY DECREASED: 45-59 ml/min/1.73 m2 G3B,MODERATELY TO SEVERELY DECREASED: 30-44 ml/min/1.73 m2 G4,SEVERELY DECREASED: 15-29 ml/min/1.73 m2 G5,KIDNEY FAILURE: <15 ml/min/1.73 m2 06/07/2024 8:01 AM FUEL CELL REPAIRER Twyla Ramya Cheema DO LABORATORY Final Result Performing Organization Address [facility] de Phone Number [address] [phone], * (ABNORMAL) VITAMIN D, 25 OH (06/07/2024 8:01 AM FUEL CELL REPAIRER) VITAMIN D 25 HYDROXY TOTAL S/P/B 15.8(L) 30 - 100 NG/ML 06/07/2024 5:54 PM FUEL CELL REPAIRER [facility] Comment: DEFICIENT <20 INSUFFICIENT 20-30 SUFFICIENT 30-100 06/07/2024 8:01 AM FUEL CELL REPAIRER Twyla Cheema DO LABORATORY Final Result Performing Organization Address [facility] de Phone Number [address] [phone], * COLONOSCOPY GENERIC (SCAN ORDER) (03/31/2016) 03/31/2016 [facility] Scanned SCANNING Final Resu lt from Last 3 Months or Most Recently Relevant to Health Maintenance Insurance MEDICARE PART A [facility] [address] [place] [id number] Care Teams Revenue Cycle Consultant Relationship Specialty Start Date End Date Twyla Cheema DO [address] [facility] [address] [place] [address] PCP - General FAMILY PRACTICE 05/10/24
[2024-08-19 13:50] LABS: Estimated Glomerular Filt Rate 56
== END 2024-08-19 13:26 | disposition home or self-care (01) ==
LOC: ANHIMG 13:27
PROVIDERS: PCP Family Medicine; Visit Provider Family Medicine
DX: R19.00 Intra-abdominal and pelvic swelling, mass and lump, unspecified site (principal); K57.30 Diverticulosis of large intestine without perforation or abscess without bleeding
CPT/HCPCS: 74177; Q9967